=== PATIENT | male | born 1935 | race Caucasian/White ===

== ENCOUNTER 2018-06-13 09:23 | Emergency (ER) | payer OTHER ==
[~2018-06-13] VITALS: Ht 193 cm; Wt 120.2 kg
[2018-06-13] MEDS ORDERED: TRAMADOL 50 MG50 MG PO (09:37)
[2018-06-13] MEDS ORDERED: BLOOD PRESSURE (09:37)
[2018-06-13] MEDS ORDERED: METFORMIN HCL500 MG PO (09:37)
[2018-06-13] MEDS ORDERED: DIABETES MED (09:38)
[2018-06-13] MEDS ORDERED: [UNRECOGNIZED DRUG - REMARK] (09:38)
[2018-06-13 11:58] VITALS: BP 135/71
== END 2018-06-13 12:03 | disposition home or self-care (01) ==
LOC: M.ERS 09:23
DX: S01.112A Laceration without foreign body of left eyelid and periocular area, initial encounter (principal); S60.512A Abrasion of left hand, initial encounter; I10 Essential (primary) hypertension; E78.5 Hyperlipidemia, unspecified; E11.9 Type 2 diabetes mellitus without complications; W18.39XA Other fall on same level, initial encounter; Y93.89 Activity, other specified; Y92.89 Other specified places as the place of occurrence of the external cause; Y99.8 Other external cause status

== ENCOUNTER → 2020-12-02 | Outpatient (CLI) | payer OTHER ==
[~2020-12-02] MED LIST: ACCURETIC 20-11 EACH; AMLODIPINE BESYL5 MG PO; BLOOD PRESSURE; DIABETES MED; GLUMETZA500; JANUVIA100 MG; LIPITOR40 MG; METFORMIN HCL500 MG PO; TRADJENTA5 MG PO; TRAMADOL 50 MG50 MG PO; [UNRECOGNIZED DRUG - REMARK]
== END ==
LOC: M.CT 08:50
DX: N28.89 Other specified disorders of kidney and ureter (principal); K76.0 Fatty (change of) liver, not elsewhere classified; N28.1 Cyst of kidney, acquired; R19.7 Diarrhea, unspecified

== ENCOUNTER → 2021-01-08 | Outpatient (CLI) | payer OTHER ==
[2021-01-08 10:09] LABS: CREATININE 0.9 mg/dL (0.6-1.3)
== END ==
LOC: M.LAB 01-01 09:56
DX: N20.0 Calculus of kidney (principal); R63.4 Abnormal weight loss

== ENCOUNTER → 2021-01-25 | Outpatient (CLI) | payer OTHER | LOC: M.MRI 14:00 | DX: M50.123 Cervical disc disorder at C6-C7 level with radiculopathy (principal); M48.02 Spinal stenosis, cervical region; M50.13 Cervical disc disorder with radiculopathy, cervicothoracic region; M48.03 Spinal stenosis, cervicothoracic region; M46.02 Spinal enthesopathy, cervical region ==